=== PATIENT | male | born 1960 | race American Indian/Alaskan Native ===

== ENCOUNTER 2025-02-16 09:18 | Outpatient (RCR) | payer OTHER, SELFPAY | END 2025-02-16 23:59 | disposition home or self-care (01) | LOC: RPT 09:18 | PROVIDERS: ATTENDING PHYSICIAN Family Medicine | DX: M79.605 Pain in left leg (principal); Z73.6 Limitation of activities due to disability; R26.89 Other abnormalities of gait and mobility | CPT/HCPCS: 97162; 97530 ==